=== PATIENT | female | born 1935 | race Caucasian/White ===

== ENCOUNTER 2018-01-14 06:27 | Inpatient (IN) | payer MEDICARE, OTHER, SELFPAY ==
[2017-12-24 12:39] VITALS: BMI 28.2
[2018-01-14] VITALS (14 sets, daily range): BP systolic 109–144; BP diastolic 40–75; PULSE 68–85; RESP 16–18; TEMP 36.1–37.2; O2SAT 96–98; BMI 27.1
--- NOTE | 2018-01-14 | DI.RAD.S_ITS ---
PROCEDURE: XR SHOULDER RT 1V INDICATIONS: 82 year-old female status post right shoulder reverse arthroplasty. TECHNIQUE: Postoperative frontal view of the right shoulder are acquired. COMPARISON: None available. FINDINGS: Bones: Right shoulder reverse arthroplasty hardware appears in expected positions. No periprosthetic fractures or dislocations. There is acromioclavicular joint degeneration. No suspicious bony lesions. Visualized ribs appear intact. Soft tissues: Overlying postoperative changes are present, including surgical drain. The visualized right lung appears clear. IMPRESSION: Status post right shoulder reverse arthroplasty, with hardware components in expected positions. Dictated by: Raúl Waller M.D. on 01/14/2018 at 10:30 Approved by: Raúl Waller M.D. on 01/14/2018 at 10:32
[2018-01-14] MEDS: LACTATED RINGERS 1,000 ML 42 ML IV (07:15)
--- NOTE | 2018-01-14 07:40 | PM.PREOP ---
Pre-operative Note Interval Note Pre-op Check: History & Physical Reviewed by Physician and Changes
[2018-01-14] MEDS: MIDAZOLAM 2 MG/2 ML VIAL IV (07:47)
[2018-01-14] MEDS: fentaNYL 100 MCG/2 ML INJ 50 MCG IV (07:55)
[2018-01-14] MEDS: CEFAZOLIN 2 GM/100 ML FROZ.PIGGY IV (08:04)
--- NOTE | 2018-01-14 08:09 | SUR.PREOP ---
Block start time 0747 . Monitoring initiated and maintained throughout procedure. Oxygen and medications given per anesthesiologist instructions. Patient remained stable throughout procedure, no adverse reactions noted. Block end time 0802
--- NOTE | 2018-01-14 08:49 | SUR.OPER ---
Beach chair with Schlein shoulder positioner. Lower body on padded OR bed. Head in foam padded head cradle, secured with straps. Non-operative arm secured <90 degrees abduction. Pillow under knees. Safety belt at thigh. Cloth tape over blanket over lower legs.
[2018-01-14] MEDS: BUPIVACAINE 0.5% W/ EPI (PF) 30 ML VIAL INJ (08:57)
[2018-01-14] MEDS: TRANEXAMIC ACID 1,000 MG VIAL 1000 MG IV ×2 (09:04→09:11)
--- NOTE | 2018-01-14 09:54 | PM.OP.1 ---
Operative Date/Time/Diagnoses - Date of procedure: 01/14/18 Time of procedure: 09:54 Pre-op diagnosis: Right shoulder rotator cuff arthropathy Post-op diagnosis: same Procedure & Clinicians Procedure: Right reverse total shoulder replacement Same procedure as scheduled: Yes Indications: The patient is had chronic right shoulder pain unresponsive to nonoperative therapies. Radiographic studies have revealed changes consistent with a massive rotator cuff tear and arthritis. They have elected to proceed with reverse total shoulder replacement after discussion of the risks benefits and alternatives. Risks discussed included but were not limited to: Failure to improve, instability, infection, nerve damage, deep venous thrombosis, pulmonary embolism, stroke, coma, myocardial infarction and . Surgeon: Daniel Ramirez [employer] Reactor Operator: Emy Yoon Anesthesia Type: General, Peripheral nerve block and Local Operative Notes Findings: Large rotator cuff tear and significant arthritic change Closure Type: primary Specimen(s): none sent Implants & Drains: Implants used in this procedure were manufactured by the [employer] and included a size 10 reverse P2 porous-coated stem, a 32 mm +4 RSP humeral socket insert, a 32 mm neutral RSP glenoid head and retaining screw, a standard RSP glenoid base plate with 30 mm central screw and 3 peripheral locking screws one 30 mm in length and two 26 mm in length. Applied: drain(s) Estimated Blood Loss (mL): 100 Blood products transfused: none Tourniquet time (min): 0 Procedure in detail: The patient was seen in the preoperative area where they identified the right shoulder as the operative site and this was marked with my initials. He received preoperative antibiotics and underwent the induction of an interscalene block. They were taken to the operating room and placed on the operating room table in a supine position with the underwent the induction of a general anesthetic. There were then repositioned in the ???beach chair??? position using a dedicated positioner. All pressure points were well padded. The knees were slightly bent to prevent tension on the sciatic nerves. The right arm was prepared from the fingertips to the base of the neck with ChloraPrep in the usual fashion and draped through sterile drapes. An approximately 15 cm incision was created starting at the clavicle just above the coracoid and going to the deltoid insertion. The deltopectoral interval was used to access the shoulder taking the vein to the medial side. The vein was protected throughout the case. The upper 1 cm of the pectoralis major was released. The biceps tendon was identified and used as a guide to releasing the remaining subscapularis. The biceps itself was tenodesed over the pectoralis tendon using a suture. The subscapularis was tagged for later repair. The shoulder was dislocated and a proximal humeral osteotomy performed using an extramedullary guide. A proximal humeral protector was then placed. Retractors were placed access the glenoid. A 360 degree release was performed of the remaining subscapularis with care being taken to protect the axillary nerve. The soft tissues were removed circumferentially around the glenoid. The guide was used to drill the guide hole in the center of the inferior glenoid. The tap was placed and used as a guide for the reamer. The tap was then removed and the glenoid base plate inserted. The peripheral locking screws were then placed through the appropriate guide. A trial glenoid head was applied. We then turned our attention to the humerus. The proximal humeral protector was removed. Cylindrical reamers were used to size the canal. Broaching was then performed beginning with a small broach and working up until a line to line fit with the reamer was obtained. The guide for the proximal metaphyseal reamer was then applied and the metaphysis was reamed appropriately. The trial metaphyseal portion of the body was then applied to the broach. Trial reductions were performed and the size of the glenoid head and the cup were optimized. Stability was checked in maximal internal and external rotation and range of motion was checked to allow access to the top of the head, internal rotation to an excess of 50?? in the ???scarecrow position??? and the ability to reach the groin. The appropriate final prosthetic components were then opened. The glenoid head was impacted into position and checked for rotational and axial stability before placing the set screw. The humeral prosthetic was then impacted into position. The humeral cup was placed. The joint was relocated and irrigated. The subscapularis was too attenuated for repair. A deep drain was placed. The deltopectoral interval was reapproximated with 0 Vicryl. Subcutaneous layer was closed with interrupted 3-0 Vicryl and skin with a running 3 0 V lock suture. Subcutaneous tissues were then infiltrated with 0.5% Marcaine for postoperative pain control. An Aquacel Ag dressing was applied and the patient's arm was placed in a sling. The patient was then transferred to the recovery room in good condition having tolerated the procedure well. Complications: none Condition: stable Disposition: PACU Plan for aftercare: The patient will be maintained in her sling for 6 weeks. They may use her hand in front of the body for computer and eating. They may shower with the dressing in place. DVT prophylaxis will be with sequential compression devices and aspirin. They may do pendulum exercises.
--- NOTE | 2018-01-14 10:38 | SUR.PHASEI ---
Report called to floor at 1035, Pt has met transfer to acute care floor criteria and is being taken via bed to room 226
[2018-01-14] MEDS: LACTATED RINGERS 1,000 ML 100 ML IV (11:26)
--- NOTE | 2018-01-14 11:48 | PC.NURSE ---
Day shift: Arrived on unit at approx 1120. Arm in sling. Aquacel right shoulder CDI. PPP and CMS ok. Artificial Cherry Maker strength weak. LR 100 left hand. Raphael-vac w/ serosang output. VS WNL. RA 97%. Oriented to room and call light. Call light in reach.
[2018-01-14] MEDS: CITALOPRAM 20 MG TABLET 30 MG PO (21:56)
[2018-01-14] MEDS: METOPROLOL ER 50 MG TABLET PO (21:57)
[2018-01-14] MEDS: SIMVASTATIN 20 MG TABLET PO (21:59)
[2018-01-14] MEDS: IBUPROFEN 200 MG TABLET PO (22:00)
[2018-01-15 00:08] VITALS: BP 140/67; PULSE 84; RESP 18; TEMP 36.7; O2SAT 99
[2018-01-15 03:45] VITALS: BP 137/70; PULSE 72; RESP 17; TEMP 36.8; O2SAT 99
[2018-01-15] MEDS: OXYCODONE IR 5 MG TABLET PO ×2 (03:53→13:24)
--- NOTE | 2018-01-15 05:44 | PC.NURSE ---
hemovac output: 0. hemovac dc'd.
[2018-01-15 05:51] LABS: Hematocrit 32.4 % (36-46); Hemoglobin 11.1 g/dL (12.0-16.0); Mean Corpuscular HGB Conc 34.4 % (30-36); Mean Corpuscular Hemoglobin 29.1 PG (26-34); Mean Corpuscular Volume 84.5 fL (80-100); Platelet Count 154 X10^3/uL (150-400); Red Blood Cell Count 3.83 X10^6/uL (4.0-5.2); Red Cell Distribution Width 14.3 % (11.6-14.8); White Blood Cell Count 15.8 X10^3/uL (4.5-11.0)
[2018-01-15 07:00] VITALS: BP 119/63; PULSE 73; RESP 16; TEMP 36.7
[2018-01-15] MEDS: ASPIRIN EC 81 MG TABLET PO (08:16)
[2018-01-15] MEDS: TRIAMTERENE/HCTZ 37.5/25 TABLET 1 CAP PO (08:16)
--- NOTE | 2018-01-15 08:51 | PM.DS.1 ---
History of Present Illness Date Patient Seen: 01/15/18 Time Patient Seen: 08:51 Chief complaint: [id number] RIGHT REVERSE TOTAL SHOULDER ARTHROPLASTY Narrative: Nicole Yeung is a 82 year old female is status post right reverse total shoulder arthroplasty with Dr. Ramirez. Discharge Providers Date of admission: 01/14/18 06:27 Primary care physician: Ariana Valenzuela MD Consults: 01/14/18 10:54 Consult to Discharge Planning Routine Comment: Discharge provider: Lore Teague PA-C Summary Discharge Diagnosis: Status post right reverse total shoulder arthroplasty Hospital Course: Patient admitted for right reverse total shoulder arthroplasty with Dr. Ramirez and she consented to procedure. Hospital course unremarkable. On postop day 1. She was feeling well and wanted to go home. Her pain was well controlled with oxycodone. She was eating and voiding without difficulty or assistance. She was afebrile and vital signs were stable. On day of discharge dressing was CDI, calves were soft, compressible, and nontender bilaterally. Time Spent with Patient Less than 30 minutes Exam Vital Signs (past 8 hours): Vital Signs - 8 hr 01/15/18 03:45 Temperature 98.3 F Pulse Rate 72 Respiratory Rate 17 Blood Pressure 137/70 H Pulse Oximetry 99 Pulse Oximetry 99 Oxygen Delivery Method Room Air Narrative Exam Narrative: Patient lying in bed in no acute distress. Alert and oriented x3. Dressing on right shoulder is CDI. Sensation intact to light touch throughout bilateral upper extremities. Pulses are symmetrical. Calves are soft, compressible, nontender bilaterally. Road Packer Operator strength is strong and equal. Her pain is well controlled with oxycodone, and ibuprofen. She denies nausea, vomiting, chest pain, or shortness of breath. Objective Labs Result Diagrams: 01/15/18 05:15 Labs: Laboratory Results - last 24 hr 01/15/18 05:15 WBC 15.8 H RBC 3.83 L Hgb 11.1 L Hct 32.4 L MCV 84.5 MCH 29.1 MCHC 34.4 RDW 14.3 Plt Count 154 Discharge Plan Discharge Plan Patient Disposition: Home, Self-Care Discharge comment: DC home this afternoon after physical therapy Discharge Med Rec/Prescriptions Prescriptions: New oxycodone 5 mg Tablet 5 mg PO Q4HR Qty: 20 RF: 0 hydroxyzine pamoate [Vistaril] 25 mg capsule 25 mg PO Q6-8H PRN (Reason: Spasms, nausea) Qty: 30 RF: 0 Continue metoprolol succinate 50 mg Tablet Extended Release 24 Hr 50 mg PO BEDTIME RF: 0 ibuprofen 200 mg Capsule 200 mg PO TID PRN (Reason: pain) RF: 0 triamterene-hydrochlorothiazid 37.5-25 mg Capsule 1 cap PO DAILY RF: 0 simvastatin 40 mg Tablet 20 mg PO BEDTIME RF: 0 citalopram [Celexa] 20 mg Tablet 30 mg PO BEDTIME RF: 0 Changed aspirin 81 mg Tablet,Delayed Release (Dr/Ec) 81 mg PO BID Qty: 0 RF: 0 Follow up/Referrals: Daniel Ramirez MD [Physician] - (Please follow up in 10-14 days) Provider Discharge Instructions Diet: Diet as Tolerated Activity: Sling for 6 weeks Wound Care Report to your healthcare provider any signs of infection, such as:: chills, fever and increased pain Dressing: Keep dressing in place for 2 weeks Visit Report/Discharge Packet Instructions: DI for Shoulder Replacement Discharge Data Primary Care Provider: Ariana Valenzuela Attending Provider: Daniel Ramirez Admit Date/Time: 01/14/18 06:27
--- NOTE | 2018-01-15 08:55 | P.DS_ITS ---
History of Present Illness Date Patient Seen: 01/15/18 Time Patient Seen: 08:51 Chief complaint: [id number] RIGHT REVERSE TOTAL SHOULDER ARTHROPLASTY Narrative: Nicole Yeung is a 82 year old female is status post right reverse total shoulder arthroplasty with Dr. Ramirez. Discharge Providers Date of admission: 01/14/18 06:27 Primary care physician: Ariana Valenzuela MD Consults: 01/14/18 10:54 Consult to Discharge Planning Routine Comment: Discharge provider: Lore Teague PA-C Summary Discharge Diagnosis: Status post right reverse total shoulder arthroplasty Hospital Course: Patient admitted for right reverse total shoulder arthroplasty with Dr. Ramirez and she consented to procedure. Hospital course unremarkable. On postop day 1. She was feeling well and wanted to go home. Her pain was well controlled with oxycodone. She was eating and voiding without difficulty or assistance. She was afebrile and vital signs were stable. On day of discharge dressing was CDI, calves were soft, compressible, and nontender bilaterally. Time Spent with Patient Less than 30 minutes Exam Vital Signs (past 8 hours): Vital Signs - 8 hr 3 01/15/18 03:45 Temperature 98.3 F Pulse Rate 72 Respiratory Rate 17 Blood Pressure 137/70 H Pulse Oximetry 99 Pulse Oximetry 99 Oxygen Delivery Method Room Air Narrative Exam Narrative: Patient lying in bed in no acute distress. Alert and oriented x3. Dressing on right shoulder is CDI. Sensation intact to light touch throughout bilateral upper extremities. Pulses are symmetrical. Calves are soft, compressible, nontender bilaterally. Finisher Operator strength is strong and equal. Her pain is well controlled with oxycodone, and ibuprofen. She denies nausea, vomiting, chest pain, or shortness of breath. Objective Labs Result Diagrams: 01/15/18 05:15 Labs: Laboratory Results - last 24 hr 01/15/18 05:15 WBC 15.8 H RBC 3.83 L Hgb 11.1 L Hct 32.4 L MCV 84.5 MCH 29.1 MCHC 34.4 RDW 14.3 Plt Count 154 Discharge Plan Discharge Plan Patient Disposition: Home, Self-Care Discharge comment: DC home this afternoon after physical therapy Discharge Med Rec/Prescriptions Prescriptions: New oxycodone 5 mg Tablet 5 mg PO Q4HR Qty: 20 RF: 0 hydroxyzine pamoate [Vistaril] 25 mg capsule 25 mg PO Q6-8H PRN (Reason: Spasms, nausea) Qty: 30 RF: 0 Continue metoprolol succinate 50 mg Tablet Extended Release 24 Hr 50 mg PO BEDTIME RF: 0 ibuprofen 200 mg Capsule 200 mg PO TID PRN (Reason: pain) RF: 0 triamterene-hydrochlorothiazid 37.5-25 mg Capsule 1 cap PO DAILY RF: 0 simvastatin 40 mg Tablet 20 mg PO BEDTIME RF: 0 citalopram [Celexa] 20 mg Tablet 30 mg PO BEDTIME RF: 0 Changed aspirin 81 mg Tablet,Delayed Release (Dr/Ec) 81 mg PO BID Qty: 0 RF: 0 Follow up/Referrals: Daniel Ramirez MD [Physician] - (Please follow up in 10-14 days) Provider Discharge Instructions Diet: Diet as Tolerated Activity: Sling for 6 weeks Wound Care Report to your healthcare provider any signs of infection, such as:: chills, fever and increased pain Dressing: Keep dressing in place for 2 weeks Visit Report/Discharge Packet Instructions: DI for Shoulder Replacement Discharge Data Primary Care Provider: Ariana Valenzuela Attending Provider: Daniel Ramirez Admit Date/Time: 01/14/18 06:27
--- NOTE | 2018-01-15 14:10 | CM.DANOTE ---
Addendum entered by Jazzmine Rosales LPN 01/15/18 14:27: Confirmed with SHARIFA Pina that PT Moira did work with pt (those notes are not yet available). Pts daughter and her granddaughter were going to take turns staying with her for assist until she was again able to function on her own. Silvana noted all were eager to head for home today. Original Note: DCP: assessment: case received this morning and discussed case in [facility] team rounds. Therapy rep noted PT had not been ordered. Documentation revealed that pt is an 82 year old female who admitted to care of Dr. Ramirez yesterday for a planned R TSA. Sling in place. Checked in with SHARIFA Pina who noted that pt was assisted by nursing to get dressed and was waiting for her daughter to arrive. Discussed ? of PT order so make sure pt is doing ok with balance and has appropriate dme. Silvana agreed and obtained order for same from ortho CARLTON Bolanos. Looked in room and pt sitting on window seat. Planned to return after she saw PT to continue the DCP assessment process. Checked in about 1345. Pt had already left with her daughter for home. No concerns were identified by the care team members. She will eventually have outpt therapy when ok'd for same by ortho team in clinic followup.
--- NOTE | 2018-01-15 15:26 | OT.IP.EVAL ---
Current Diagnoses Other specific arthropathies, not elsewhere classified, right shoulder (01/14/18) Surgery Performed Operation Date: 01/14/18 07:45 Actual Procedures p Total Shoulder Arthroplasty(Right) - Daniel Ramirez MD Past Medical History (Last Updated 12/24/17 @ 13:20 by Rhonda De Jesus RN) Arthritis (Acute) Chronic lower back pain (Acute) Generalized headaches (Acute) HTN (hypertension) (Acute) Hyperlipemia (Acute) Insulin resistance (Acute) Surgical History (Last Updated 12/24/17 @ 13:20 by Rhonda De Jesus RN) H/O bilateral oophorectomy (Acute) History of arthroplasty of both knees (Acute) History of arthroscopy of both knees (Acute) History of bilateral cataract extraction (Acute) History of colon resection (Acute) Hx of appendectomy (Acute) Hx of tonsillectomy (Acute) Occupational Therapy Inpatient Evaluation/Re-Eval M1 PT/OT-IP Prior Functional Status Start: 01/15/18 15:16 Freq: NEEDED Status: Active Protocol: Document 01/15/18 10:40 [facility] (Rec: 01/15/18 15:24 [facility] [id number]) Medical Review Prior Functional Status Medical History Reviewed Yes Diet/Fluid Consistency Regular Thin Liquids Mobility and Gait Independent no device. Activities of Daily Living and IADL's Independent with all. Social History Household Members none Living Arrangements House Number of Floors (Floors) Two Floors Number of Stairs To Enter/Railing? 4 steps and right hand rail. Home Environment Standard Height Toilet Walk in Shower M2 OT-IP Current Condition Start: 01/15/18 15:16 Freq: Status: Active Protocol: Document 01/15/18 10:40 [facility] (Rec: 01/15/18 15:24 [facility] [id number]) Occupational Therapy Current Condition Current Condition Evaluation Date 01/15/18 Treatment Diagnosis Right Shoulder Osteoarthritis Post Operative Precautions Shoulder Precautions Sling Pendulums Other Precautions At this time, pt not able to follow pendulums without use of right shoulder muscle, educated pt to lean forwards and allow for her right arm to hang. Weight Bearing Status Weight Bearing Status Non-Weight Bearing M3 OT- IP Subjective and Pain Start: 01/15/18 15:16 Freq: Status: Active Protocol: Document 01/15/18 10:40 [facility] (Rec: 01/15/18 15:24 [facility] [id number]) OT- Subjective Occupational Therapy Visit Type Type Initial Evaluation Visit Start Time 10:40 Visit Stop Time 11:25 Total Visit Minutes 45 Occupational Therapy Visit Comments Patient/Caregiver Goals Pt motiviated to go home today . OT Pain Assessment Pain When Pain Assessed During Mobility Pain Present Pain Present Denied Pain M4 OT- IP ADL's Start: 01/15/18 15:16 Freq: Status: Active Protocol: Document 01/15/18 10:40 [facility] (Rec: 01/15/18 15:24 [facility] [id number]) OT [id number]-[id number] General Evaluation Self-Feeding Ability Standby Assistance Areas Needing Assistance Cutting Food Opening Containers OT ADL-Grooming General Evaluation Grooming Ability Standby Assistance Areas Needing Assistance Retrieving/Set-up of Grooming Items OT ADL-Oral Care General Eval Oral Care Ability Standby Assistance Areas of Assistance Retrieving/Set-Up of Items OT ADL-Dressing General Eval Upper Body Dressing Ability Maximum Assistance Lower Body Dressing Ability Maximum Assistance Areas Needing Assistance Retrieving/Set-up of Clothing Managing Buttons Managing Zippers/Fasteners Button-Up Shirt/Blouse Underpants/Brief Pants/Shorts Socks Shoes Comments OT Dressing Comments Due to right arm in sling and precautions for shoulder, pt needing MAX A for all dressing needs. Pt given larger sling due to sling from surgery too small. Pt has good understandign for sling management , dressing needs to let right arm hang down and assist to dress. OT ADL-Toileting General Evaluation Toileting Ability Standby Assistance OT ADL-Bathing Comments OT Bathing Comments Recommend pt get a shower chair and daughter to assist. M7 OT- IP Mobility and Balance Start: 01/15/18 15:16 Freq: Status: Active Protocol: Document 01/15/18 10:40 [facility] (Rec: 01/15/18 15:24 [facility] [id number]) OT- Bed Mobility Assessment Rolling Type of Rolling Roll to Left Level of Assistance Independent Supine to Sit Supine to Sit Assist Independent Sit to Supine Sit to Supine Assist Independent OT-Transfer Assessment Sit to and From Stand Sit to and from Stand Independent Transfers Transfer Ability Independent OT- Gait Assessment Gait Gait Assistance Required: Independent Assistive Devices Assistive Device None OT- Balance Assessment Sitting Balance and Reactions Static Sitting Balance Ability Normal Dynamic Sitting Balance Ability Normal Standing Balance and Reactions Static Standing Balance Ability Normal Dynamic Standing Balance Ability Good M9 OT- IP Assessment and Plan Start: 01/15/18 15:16 Freq: Status: Active Protocol: Document 01/15/18 10:40 [facility] (Rec: 01/15/18 15:24 [facility] [id number]) OT Summary Assessment and Plan Potential Rehabilitation Potential Excellent Summary OT Impairments Range of Motion Strength Balance Dressing Toileting Bathing Progress Towards Goals Progressing Toward Goals Safe For Discharge Goals Dressing Goal Minimal Assistance Patient/Caregiver Education Goal Caregiver Independent Assisting Patient Days to Meet Goals 1 Frequency of Treatment Frequency Of Treatment Once a Day Treatment Plan OT Treatment Plan ADL Training Patient/Family Education Discharge Planning Discharge Recommendations OT Discharge Recommendations Home with Assistance Home Equipment Needs Showe chair
--- NOTE | 2018-01-15 16:41 | PT.IIE ---
Current Diagnoses Other specific arthropathies, not elsewhere classified, right shoulder (01/14/18) Surgery Performed Operation Date: 01/14/18 07:45 Actual Procedures p Total Shoulder Arthroplasty(Right) - Daniel Ramirez MD Surgical History (Last Updated 12/24/17 @ 13:20 by Rhonda De Jesus RN) H/O bilateral oophorectomy (Acute) History of arthroplasty of both knees (Acute) History of arthroscopy of both knees (Acute) History of bilateral cataract extraction (Acute) History of colon resection (Acute) Hx of appendectomy (Acute) Hx of tonsillectomy (Acute) Medical History (Last Updated 12/24/17 @ 13:20 by Rhonda De Jesus RN) Arthritis (Acute) Chronic lower back pain (Acute) Generalized headaches (Acute) HTN (hypertension) (Acute) Hyperlipemia (Acute) Insulin resistance (Acute) Physical Therapy Inpatient Evaluation/Re-Eval M1 PT/OT-IP Prior Functional Status Start: 01/15/18 15:16 Freq: NEEDED Status: Active Protocol: Document 01/15/18 16:28 AB (Rec: 01/15/18 16:40 AB [id number]) Medical Review Prior Functional Status Medical History Reviewed Yes Diet/Fluid Consistency Regular Thin Liquids Mobility and Gait Independent no device. Activities of Daily Living and IADL's Independent with all. Social History Household Members none Living Arrangements House Number of Floors (Floors) Two Floors Number of Stairs To Enter/Railing? 4 steps with R rail ascending Home Environment High Toilet Walk in Shower Home Equipment Hand Held Shower Employment Status Retired Additional Social History Comment pt will have her daughter and niece assist her; daughter lives next door. pt stated that she will stay on main level of the house and will use her lift chair to sleep on. M2 PT-IP Current Condition Start: 01/15/18 16:27 Freq: NEEDED Status: Active Protocol: Document 01/15/18 16:28 AB (Rec: 01/15/18 16:40 AB [id number]) Physical Therapy Current Condition Current Condition Evaluation Date 01/15/18 Treatment Diagnosis s/p R reverse TSR Onset Date 01/14/18 Precautions Shoulder Precautions Sling Pendulums Other Precautions At this time, pt not able to follow pendulums without use of right shoulder muscle, educated pt to lean forwards and allow for her right arm to hang. Weight Bearing Status Weight Bearing Status Non-Weight Bearing M3 PT-IP Subjective Start: 01/15/18 16:27 Freq: NEEDED Status: Active Protocol: Document 01/15/18 16:28 AB (Rec: 01/15/18 16:40 AB [id number]) Subjective Physical Therapy Visit Type Type Initial Evaluation Visit Start Time 12:50 Visit Stop Time 13:22 Total Visit Minutes 32 Number of [employer] Visits 0 Physical Therapy Visit Comments Patient Comments pt stated that she is ready to go home Therapy Pain Assessment Pain Present Pain Present Denied Pain M4 PT-IP Mobility and Gait Start: 01/15/18 16:27 Freq: NEEDED Status: Active Protocol: Document 01/15/18 16:28 AB (Rec: 01/15/18 16:40 AB [id number]) PT-Transfer Assessment Sit to and From Stand Sit to and from Stand Standby Assistance Equipment Transfer Assistive Device None Comments Mobility Comments pt stated that she will be using her lift chair at home to sleep in. Gait Assessment Gait Gait Assistance Required: Standby Assistance Distance (Feet) (feet) 75 Able to Maintain Weight Bearing Status Yes During Gait Assistive Devices Assistive Device None Gait Deviations General Gait Pattern Within Normal Limits Stair Climbing Assessment Evaluation Level of Assist On Stairs Standby Assistance Devices Stair Climbing Assistive Devices Right Railing Technique/Endurance Stair Climbing Direction Ascend and Descend Stair Climbing Technique Step Over Step Number of Steps Climbed 4 Query Text: Comments Stair Climbing Comments educated pt to slow down for safety PT-Balance Assessment Sitting Balance and Reactions Static Sitting Balance Ability Good Dynamic Sitting Balance Ability Good Standing Balance and Reactions Static Standing Balance Ability Good Dynamic Standing Balance Ability Good Device Used none M5 PT-IP Objective Assessments Start: 01/15/18 16:27 Freq: NEEDED Status: Active Protocol: Document 01/15/18 16:28 AB (Rec: 01/15/18 16:40 AB [id number]) Orientation Orientation/Cognition Level of Alertness Alert Orientation Name Age Birthday Place Situation Comments requires cues for precautions M6 PT-IP Treatment Start: 01/15/18 16:27 Freq: NEEDED Status: Active Protocol: Document 01/15/18 16:28 AB (Rec: 01/15/18 16:40 AB [id number]) Physical Therapy Treatment Education Education Provided Precautions Weight Bearing Status Safety Other Treatments Other Treatment Performed educated pt and daughter regarding sling management and daughter was able to sushil sling on pt. educated on dangling RUE downward with pt using counter for support for dressing and hygiene purposes. M7 PT-IP Assessment and Plan Start: 01/15/18 16:27 Freq: NEEDED Status: Active Protocol: Document 01/15/18 16:28 AB (Rec: 01/15/18 16:40 AB [id number]) PT Summary Assessment and Plan Potential Rehabilitation Potential Good Status of Condition at Evaluation Stable Summary Impairments Pain ROM Strength Transfers Gait Activity Tolerance Assessment Summary pt SBA with mobility and will have family to assist her at home. Goals Bed Mobility Goal Independent Transfer Goal Independent Gait Goal Independent Gait Distance 150 Other Goals up/down 4 steps with R rail ascending Days to Meet Goals 1 Frequency of Treatment Frequency Of Treatment Twice a Day Treatment Plan Physical Therapy Treatment Plan Bed Mobility Training Transfer Training Gait Training Therapeutic Exercise Balance Retraining Post Op Education Discharge Planning Hot or Cold Pack Neuromuscular Re-ed Coordination Retraining Manual Therapy Recommendations To Nursing Amount of Assist Needed Standby Assistance Discharge Recommendations PT Discharge Recommendations Home with Assistance Outpatient PT Provider Visit Care Team Role Provider Type Ariana Valenzuela MD Primary Care Provider Non-Staff Specialty: Medical Daniel Ramirez MD Admit Provider Physician Attending Provider Specialty: Orthopedic Surgery
== END 2018-01-15 13:15 | disposition home or self-care (01) | DRG 483 ==
PROVIDERS: Admitting Provider Orthopaedic Surgery; PCP Anesthesiology Pain Medicine; Visit Provider Orthopaedic Surgery
PROC: 0RQJ0ZZ Repair Right Shoulder Joint, Open Approach (ICD-10-PCS; CPT 23472; principal; 2018-01-14 07:45)
DX: M75.111 Incomplete rotator cuff tear or rupture of right shoulder, not specified as traumatic (principal); M19.011 Primary osteoarthritis, right shoulder; I10 Essential (primary) hypertension; E78.5 Hyperlipidemia, unspecified
CPT/HCPCS: 36415; 73020; 85027; 97161; 97165; 97530; 97535; C1776; J0690; J1100; J2250; J2405; J2704; J2795; J3010

== ENCOUNTER 2023-03-04 21:59 | Emergency (ER) | payer MEDICARE, OTHER, SELFPAY ==
[2018-01-14 11:28] VITALS: BMI 27.1
[2023-03-04 22:13] VITALS: BP 155/79; PULSE 90; RESP 18; TEMP 36.4; O2SAT 96; BMI 29.6
[2023-03-05] VITALS (13 sets, daily range): BP systolic 159–210; BP diastolic 77–93; PULSE 73–85; RESP 16–23; O2SAT 96–98
--- NOTE | 2023-03-05 03:50 | DI.RAD.S_ITS ---
PROCEDURE: XR CHEST 1V INDICATIONS: hx of chf TECHNIQUE: One view of the chest was acquired. COMPARISON: CR, CHEST 2VW, 09/25/2014, 9:51. FINDINGS: Surgical changes and devices: Right shoulder arthroplasty. Lungs and pleura: Minimal blunting of the costophrenic angles bilaterally with bibasilar coarsening. Mediastinum: Mediastinal contours appear normal. Heart size is enlarged Bones and chest wall: No suspicious bony lesions. Overlying soft tissues appear unremarkable. IMPRESSION: Costophrenic angle blunting possibly related to minimal effusions versus scarring. Bibasilar coarsening is present suggestive of dependent change/edema. Dictated by: Tanisha Michaels M.D. on 03/05/2023 at 8:33 Approved by: Tanisha Michaels M.D. on 03/05/2023 at 8:34
[2023-03-05 04:06] LABS: Add Manual Diff / Slide Review NO; Basophils Absolute Auto 100 /uL (0-100); Basophils Percent Auto 0.7 % (0-2); Eosinophils Absolute Auto 600 /uL (0-450); Eosinophils Percent Auto 5.6 % (2-4); Hematocrit 38.1 % (36-46); Lymphocytes Absolute Auto 1700 /uL (1100-4500); Lymphocytes Percent Auto 17.5 % (25-40); Mean Corpuscular Hemoglobin 29.8 PG (26-34); Mean Corpuscular Volume 87.7 fL (80-100); Monocytes Absolute Auto 900 /uL (0-900); Monocytes Percent Auto 8.8 % (3-14); Neutrophils Absolute Auto 6700 /uL (1500-7000); Neutrophils Percent Auto 67.4 % (50-75); Platelet Count 183 X10^3/uL (150-400); Red Blood Cell Count 4.35 X10^6/uL (4.0-5.2); White Blood Cell Count 9.9 X10^3/uL (4.5-11.0)
[2023-03-05 04:09] LABS: Alanine Aminotransferase 20 IU/L (<35); Albumin 4.1 g/dL (3.5-5.0); Albumin Globulin Ratio 1.5 (1.0-2.8); Alkaline Phosphatase 105 U/L (38-126); Aspartate Aminotransferase 24 IU/L (14-36); BUN Creatinine Ratio 28.2 (6-22); Bilirubin Total 0.9 mg/dL (0.2-1.3); Blood Urea Nitrogen 20 mg/dL (7-17); Calcium 9.2 mg/dL (8.4-10.2); Carbon Dioxide 31 mmol/L (22-32); Chloride 102 mmol/L (98-107); Creatine Kinase 62 U/L (30-135); Estimated Glomerular Filt Rate > 60 mL/min (>60); Globulin 2.8 g/dL (1.7-4.1); Glucose 146 mg/dL (80-110); HEMOLYSIS < 15 (0-50); Potassium 3.3 mmol/L (3.4-5.1); Sodium 139 mmol/L (137-145); Total Protein 6.9 g/dL (6.3-8.2)
--- NOTE | 2023-03-05 04:19 | ED_ITS ---
HPI - Extremity Problem General Chief complaint: Extremity Problem,Nontraumatic Stated complaint: high blood pressure, swollen legs Time Seen by Provider: 03/05/23 04:19 Source: patient Mode of arrival: Wheelchair History of Present Illness HPI Narrative: 88-year-old woman presents complaining of elevated blood pressure and right lower extremity swelling. No trauma identified. Patient has a complex medical history with multiple recent admissions, congestive heart failure and difficulty with taking medications. She had been in assisted living and very much wanted to return home. She currently is home with her granddaughter and the granddaughter's family living with her. Granddaughter had initially been administering all medications but patient wanted to administer her own. Turns out that she had been missing small doses of Lasix and all doses of potassium. She is had congestive heart failure exacerbations and episodes of hypokalemia. With her most recent exacerbation she had some white swelling in her right lower calf and then dramatic worsening to the point she needed hospitalization for her congestive heart failure. Last night the patient's daughters notice that her right calf was a bit more swollen. Her medications currently are bubble packed and it does seem that she has been taking them for the most part. Daughters note that she very likely is leaving out various pills and clearly does not prefer taking the potassium. Patient is not complaining of shortness of breath orthopnea pain in the lower extremities no abdominal pain vomiting or nausea. Related Data Home Medications Medication Instructions Recorded Confirmed citalopram 20 mg tablet (Celexa) 30 mg PO BEDTIME 12/24/17 01/14/18 ibuprofen 200 mg capsule 200 mg PO TID PRN pain 12/24/17 01/14/18 metoprolol succinate 50 mg 50 mg PO BEDTIME 12/24/17 01/14/18 tablet,extended release 24 hr simvastatin 40 mg tablet 20 mg PO BEDTIME 12/24/17 01/14/18 triamterene 37.5 1 cap PO DAILY 12/24/17 01/14/18 mg-hydrochlorothiazide 25 mg capsule Previous Rx's Medication Instructions Recorded aspirin 81 mg tablet,delayed 81 mg PO BID #0 tabs 01/15/18 release hydroxyzine pamoate 25 mg capsule 25 mg PO Q6-8H PRN Spasms, nausea 01/15/18 (Vistaril) #30 caps oxycodone 5 mg tablet 5 mg PO Q4HR Severe pain #20 tabs 01/15/18 Allergies Allergy/AdvReac Type Severity Reaction Status Date / Time codeine AdvReac Intermediate Nausea Verified 01/14/18 07:13 morphine AdvReac Intermediate Nausea Verified 01/14/18 07:13 Review of Systems Review of Systems Narrative: Pertinent positive and negative findings as per HPI Patient History Medical History Arthritis CHF (congestive heart failure) Chronic lower back pain Generalized headaches HTN (hypertension) Hyperlipemia Insulin resistance Surgical History H/O bilateral oophorectomy History of arthroplasty of both knees History of arthroscopy of both knees History of bilateral cataract extraction History of colon resection Hx of appendectomy Hx of tonsillectomy Social History household members: none Smoking Status: Former smoker alcohol intake: current Smoking Status: Former smoker alcohol intake frequency: holidays/special occasions only Substance Use Type: does not use Exam Initial Vital Signs Initial Vital Signs: Vital Signs Temperature 97.5 F L 03/04/23 22:13 Pulse Rate 90 03/04/23 22:13 Respiratory Rate 18 03/04/23 22:13 Blood Pressure 155/79 H 03/04/23 22:13 Pulse Oximetry 96 03/04/23 22:13 Oxygen Delivery Method Room Air 03/04/23 22:13 General: Chronically ill-appearing but in no acute distress. HEENT: Moist mucous membranes, normal sclera with reactive pupils, Neck: No JVD, supple Respiratory: Lungs are clear to auscultation, no wheezing no rales no rhonchi. Full and symmetrical air movement Cardiac: Regular rate and rhythm no murmurs no bruits Abdomen: Soft, nontender, good bowel tones, no flank pain Skin: Warm and dry, no rashes Neurologic: Grossly neurologically intact with no obvious asymmetries or abnormalities Extremities: Right calf is slightly more swollen than the left, she is got minor edema bilaterally with chronic venous stasis changes Psych: Cooperative, appropriate insight and affect Course Orders Ordered: ED Orders 03/05/23 03:48 Complete Blood Count AUTO DIFF Stat Comprehensive Metabolic Panel Stat NT-proBNP (BNP-Adult 18+) Stat Troponin & CK Cardiac Panel Stat 03/05/23 03:50 XR chest 1V Stat EKG-12 Lead Stat Discontinued Medications Furosemide 60 mg/ Sodium (Chloride) 56 mls @ 112 mls/hr IV NOW ONE Stop: 03/05/23 04:36 Last Infusion: 03/05/23 05:26 Dose: 0 mls/hr Documented By: Admin: 03/05/23 04:45 Dose: 112 mls/hr Documented By: Vital Signs Vital signs: Vital Signs - 8 hr 03/05/23 03:37 03/05/23 03:37 03/05/23 03:43 Pulse Rate 85 83 Respiratory Rate Blood Pressure 210/93 H Pulse Oximetry 98 97 Oxygen Delivery Method 03/05/23 03:43 03/05/23 04:00 03/05/23 04:03 Pulse Rate 83 81 Respiratory Rate 20 Blood Pressure 194/84 H Pulse Oximetry 98 98 Oxygen Delivery Method Room Air 03/05/23 04:03 03/05/23 04:30 03/05/23 04:30 Pulse Rate 79 Respiratory Rate 19 Blood Pressure 172/77 H 199/86 H Pulse Oximetry 97 Oxygen Delivery Method 03/05/23 05:00 03/05/23 05:01 03/05/23 05:18 Pulse Rate 73 74 75 Respiratory Rate 17 17 Blood Pressure Pulse Oximetry 97 97 97 Oxygen Delivery Method 03/05/23 05:30 03/05/23 05:46 03/05/23 05:45 Pulse Rate 75 79 Respiratory Rate 16 19 Blood Pressure 191/86 H Pulse Oximetry 97 96 Oxygen Delivery Method 03/05/23 06:00 03/05/23 06:01 03/05/23 06:01 Pulse Rate 77 77 Respiratory Rate 23 18 Blood Pressure 159/84 H Pulse Oximetry 97 96 Oxygen Delivery Method MDM - Extremity (Nontraumatic) Lab Data 03/05/23 03:48 03/05/23 03:48 Labs: Lab Results 03/05/23 03/05/23 Range/Units 03:48 03:48 WBC 9.9 (4.5-11.0) X10^3/uL RBC 4.35 (4.0-5.2) X10^6/uL Hgb 13.0 (12.0-16.0) g/dL Hct 38.1 (36-46) % MCV 87.7 (80-100) fL MCH 29.8 (26-34) PG MCHC 34.0 (30-36) % RDW 15.0 H (11.6-14.8) % Plt Count 183 (150-400) X10^3/uL Neut % (Auto) 67.4 (50-75) % Lymph % (Auto) 17.5 L (25-40) % [place] % (Auto) 8.8 (3-14) % Eos % (Auto) 5.6 H (2-4) % Baso % (Auto) 0.7 (0-2) % Neut # (Auto) 6700 (8234-3961) /uL Lymph # (Auto) 1700 (0049-5677) /uL [place] # (Auto) 900 (0-900) /uL Eos # (Auto) 600 H (0-450) /uL Baso # (Auto) 100 (0-100) /uL Sodium 139 (137-145) mmol/L Potassium 3.3 L (3.4-5.1) mmol/L Chloride 102 (98-107) mmol/L Carbon Dioxide 31 (22-32) mmol/L BUN 20 H (7-17) mg/dL Creatinine 0.71 (0.52-1.04) mg/dL Estimated GFR > 60 (>60) mL/min BUN/Creatinine Ratio 28.2 H (6-22) Glucose 146 H (80-110) mg/dL Calcium 9.2 (8.4-10.2) mg/dL Total Bilirubin 0.9 (0.2-1.3) mg/dL AST 24 (14-36) IU/L ALT 20 (<35) IU/L Alkaline Phosphatase 105 (38-126) U/L Total Creatine Kinase 62 (30-135) U/L Troponin I 0.014 (0.01-0.034) ng/mL NT-Pro-B Natriuret Pep 522 H (<450) pg/mL Total Protein 6.9 (6.3-8.2) g/dL Albumin 4.1 (3.5-5.0) g/dL Globulin 2.8 (1.7-4.1) g/dL Albumin/Globulin Ratio 1.5 (1.0-2.8) MDM Narrative Medical decision making narrative: CC: Right calf swelling, acute finding uncertain prognosis Complicating co-morbidities: Extensive medical history with congestive heart failure and coronary artery disease, intermittent medication noncompliance and multiple episodes of prior lower extremity edema. Data collected from: patient, 2 daughters Social determinants of health that may influence the patients condition: Patient is exceedingly independent and has moved away from assisted living and away from family helping with medication administration Differential considered: Exacerbation of congestive heart failure, DVT, cellulitis, trauma Exam documented above, pertinent findings include: Patient is alert able to carry on a complete conversation. No JVD, no wheezes or crackles. Right calf is slightly more swollen than the left but not particularly tender. Minor lower extremity edema only Lab Test results independently reviewed as above. Pertinent findings: CBC is unremarkable with appropriate H&H Metabolic panel is reassuring potassium is slightly low at 3.3 creatinine is appropriate 0.71. ProBNP is only minimally elevated. Troponin is undetectable Independently reviewed EKG sinus rhythm, occasional PAC, left axis deviation, left ventricular hypertrophy, no acute ischemic changes Imaging studies independently reviewed: Chest x-ray shows no acute findings specifically no fluid overload or cardiomegaly Treatments: 60 mg of IV Lasix as administered with almost a 1000 cc of urine out Re-evaluations: Patient is re-evaluated, after the L of urine that she is put out her leg is moderately less swollen, Discussion: 88-year-old woman with congestive heart failure. Family is doing an outstanding job of trying to manage this delightfully independent woman. There being very proactive in bring her in with concerns for the right lower extremity swelling. The fact that it has decreased with the diuresis is stella ssuring. At this point I do not suspect DVT, severe congestive heart failure exacerbation, acute coronary syndrome or reason for hospital admission at this time. Thoughts are reviewed with patient and family. I believe she is safe for discharge home I will not recommend any additional medication changes. The family does seem to have excellent resources and focus and doing their best to allow their mom to live as independently as possible while still maintaining medical recommendations. She is safe for discharge home Discharge Plan Departure Patient Disposition: Home Clinical Impression: Lower extremity edema Congestive heart failure Qualifiers: Heart failure type: unspecified Heart failure chronicity: acute on chronic Qualified Code(s): I50.9 - Heart failure, unspecified Instructions: DI for Heart Failure Activity Restrictions/Additional Instructions: Thank you for coming in today I think that the swelling in your right calf is due to fluid and heart failure. It is sometimes so difficult to keep volume status managed with heart failure. I do not think that there is a blood clot or an infection. You were given an additional dose of Lasix in the emergency department and were able to void over a L of fluid. At this time, I do not see the need for advanced imaging or additional changes to medications. I am going to have you go home. Please make sure that you are taking all of your usual medications Please follow-up as scheduled. Prescriptions: No Action metoprolol succinate 50 mg Tablet Extended Release 24 Hr 50 mg PO BEDTIME ibuprofen 200 mg Capsule 200 mg PO TID PRN (Reason: pain) triamterene-hydrochlorothiazid 37.5-25 mg Capsule 1 cap PO DAILY simvastatin 40 mg Tablet 20 mg PO BEDTIME citalopram [Celexa] 20 mg Tablet 30 mg PO BEDTIME oxycodone 5 mg Tablet 5 mg PO Q4HR Qty: 20 0RF Rx Instructions: 1 to 2 tabs every 4-6 hours hydroxyzine pamoate [Vistaril] 25 mg capsule 25 mg PO Q6-8H PRN (Reason: Spasms, nausea) Qty: 30 0RF aspirin 81 mg Tablet,Delayed Release (Dr/Ec) 81 mg PO BID Qty: 0 0RF Referrals: Aria Lara ARNP [Primary Care Provider] - Stand Alone Forms: Patient Portal/API
[2023-03-05 04:20] LABS: NT-proBNP (BNP-Adult 18+) 522 pg/mL (<450); Troponin I 0.014 ng/mL (0.01-0.034)
[2023-03-05] MEDS: FUROSEMIDE 60 MG in SODIUM CHLORIDE 0.9% 50 ML 112 MG IV (04:45)
== END 2023-03-05 07:04 | disposition home or self-care (01) ==
PROVIDERS: Emergency Provider Emergency Medicine; PCP Nurse Practitioner
DX: R60.0 Localized edema (principal); I50.9 Heart failure, unspecified
CPT/HCPCS: 36415; 71045; 80053; 82550; 83880; 84484; 85025; 93005; 96365; 99284; J1940